=== PATIENT | female | born 1935 | race Caucasian/White ===

== ENCOUNTER 2016-09-28 07:28 | Outpatient (CLI) | payer OTHER ==
[2013-12-15 10:46] VITALS: BP 130/68
[2016-09-28 08:20] LABS: eGFR (African) > 60; eGFR (Non-African) > 60
== END 2016-09-28 07:30 ==
LOC: LAB 07:28
PROVIDERS: ATTEND Internal Medicine Endocrinology, Diabetes & Metabolism
DX: E89.0 Postprocedural hypothyroidism (principal); I10 Essential (primary) hypertension; E10.9 Type 1 diabetes mellitus without complications
CPT/HCPCS: 36415; 80053; 80061; 82043; 83036; 84439; 84443

== ENCOUNTER 2017-01-30 07:05 | Outpatient (CLI) | payer OTHER ==
[2013-12-15 10:46] VITALS: BP 130/68
[2017-01-30 08:14] LABS: eGFR (African) > 60; eGFR (Non-African) > 60
== END 2017-01-30 08:53 ==
LOC: LAB 07:05
PROVIDERS: ATTEND Internal Medicine Endocrinology, Diabetes & Metabolism
DX: E89.0 Postprocedural hypothyroidism (principal); I10 Essential (primary) hypertension; E10.9 Type 1 diabetes mellitus without complications
CPT/HCPCS: 36415; 80053; 80061; 83036; 84439; 84443

== ENCOUNTER 2017-05-02 14:56 | Outpatient (CLI) | payer OTHER ==
[2013-12-15 10:46] VITALS: BP 130/68
== END 2017-05-02 14:57 ==
LOC: POD 14:56
PROVIDERS: ATTEND Podiatrist
DX: B35.1 Tinea unguium (principal); M79.674 Pain in right toe(s); M79.675 Pain in left toe(s)
CPT/HCPCS: G0463

== ENCOUNTER 2017-07-26 07:16 | Outpatient (CLI) | payer OTHER ==
[2013-12-15 10:46] VITALS: BP 130/68
[2017-07-26 08:10] LABS: eGFR (African) > 60; eGFR (Non-African) > 60
== END 2017-07-26 09:03 ==
LOC: LAB 07:16
PROVIDERS: ATTEND Internal Medicine Endocrinology, Diabetes & Metabolism
DX: E10.9 Type 1 diabetes mellitus without complications (principal); E89.0 Postprocedural hypothyroidism
CPT/HCPCS: 36415; 80053; 80061; 83036; 84439; 84443

== ENCOUNTER 2017-08-10 15:49 | Emergency (ER) | payer OTHER ==
[~2017-08-10 15:49] MED LIST: KETAMINE HCL 200 MG/20 ML VIAL IVP ONE; SUCCINYLCHOLINE CHLORIDE 20 MG/ML 10ML VIAL IVP ONE
[2017-08-10] MEDS ORDERED: INSULIN REGULAR, HUMAN 100 UNIT/ML 3ML VIAL IV ONE (16:04)
[2017-08-10] MEDS ORDERED: MIDAZOLAM HCL 5 MG/5 ML VIAL IVP ONE ×2 (16:05→16:08)
[2017-08-10 16:17] LABS: MEAN CORPUSCULAR HEMOGLOBIN 31.2 pg (28.0-34.0); MEAN CORPUSCULAR VOLUME 117.9 fl (80.0-100.0)
--- NOTE | 2017-08-10 16:19 | ED Physician Documentation ---
General Adult - HISTORIAN Historian: paramedics - [facility] Chief Complaint: General Adult (unresponsive) Additional Information: Patient was found in her apartment by friends unresponsive with shallow respiration. EMT was called. On their arrival SAO2 was 58, respiratory assistance was start with bag/ mask. SAO2 improved to the mid 80s. Paramedics attempted incubation but were unsuccessful. Glucose stick was high. Patient was transferred to ED. Mental status remained unchanged during transport. Timing: still present Context: unknown Further Comments: yes (After medical records obtained from clinic patient noted to be on insulin. It is not known if she has been taking it or not. No recent illnes noted by family.) Last known Well Code/Unknown Code: Unknown - ROS CONST: no problems - PAST HX Past History: hypertension, other (hypothyroidism) Other History: diabetes Type 2 Surgeries/Procedures: none Immunizations: other (unknown) Allergies/Adverse Reactions: Allergies Allergy/AdvReac Type Severity Reaction Status Date / Time No Known Drug Allergies Allergy Verified 08/10/17 18:42 Home Medications: Ambulatory Orders Medication Instructions Recorded Levothyroxine Sodium 30 Days 01/23/13 Pravastatin Sodium 30 Days 01/23/13 - SOCIAL HX Smoking History: non-smoker Alcohol Use: none Drug Use: none - FAMILY HX Family History: No - VITAL SIGNS Vital Signs: Vital Signs Temp Pulse Resp BP Pulse Ox 130/68 12/15/13 10:45 - REVIEWED ASSESSMENTS Nursing Assessment Reviewed: Yes Vitals Reviewed: Yes Procedures Intubation Method: nasotracheal Tube Size (cm): 7.0 Medications: Pancuronium, Succinylcholine Breath Sounds after Intubation: equal Intubation Complications: no complications Post Intubation Xray: Yes (tube above edelmira) Critical Care Note - Critical Care Note Total Time (mins): 40 Comments: I was at patient bedside performing or managing care. ED Results Lab/Radiology - Orders Orders: ED Orders Category Date Time Status Continuous EKG monitoring Q30M Care 08/10/17 16:00 Active Continuous Pulse Oximetry Q30M Care 08/10/17 16:[address] IV Lock 1T Care 08/10/17 16:00 Active CHEST 1 VIEW [RAD] Stat Exams 08/10/17 16:00 Ordered CBC/PLATELET/DIFF Routine Lab 08/10/17 16:00 Ordered CMP Routine Lab 08/10/17 16:00 Ordered TROPONIN I (cTnI) Stat Lab 08/10/17 16:00 Ordered Insulin Regular, Human [Humulin R] Med 08/10/17 16:04 Discontinued 10 unit IV NOW ONE Oxygen Daily Oxygen 08/10/17 16:00 Ordered EKG WITH COMPARISON Stat Ther 08/10/17 16:00 Ordered General Adult Physical Exam - PHYSICAL EXAM GENERAL APPEARANCE: poor respiratory effort EENT: eye inspection normal, pharynx normal, no signs of dehydration, other ( some emisis in pharynx) NECK: normal inspection, supple RESPIRATORY: rales (few scttered), other (bag/mask assisstance). No: wheezes, rhonchi CVS: reg rate & rhythm, heart sounds normal, equal pulses, no gallop ABDOMEN: soft, no organomegaly, normal bowel sounds, no abdominal bruit SKIN: warm/dry, normal color EXTREMITIES: edema NEURO: CN's nml as tested, motor nml (moving all extremities). No: oriented X3 Discharge Clincal Impression: DKA (diabetic ketoacidoses) Qualifiers: Diabetes mellitus type: type 2 Diabetes mellitus complication detail: with coma Qualified Code(s): E11.11 - Type 2 diabetes mellitus with ketoacidosis with coma Referrals: Suni Brown MD [Primary Care Provider] - 2 Days Condition: Critical Decision to Admit: [id number] Date of Decison to Admit: 08/10/17 Decision Time: 16:00
--- NOTE | 2017-08-10 16:29 | Diagnostic Imaging Report ---
[facility] [address] [facility].[address] [id number] Report Submission Date: Aug 10, 2017 4:27:48 PM [employer] Patient Study Name: MELLY RAMON Date: Aug 10, 2017 4:04:46 PM [employer] Modality Type: CR Gender: F Description: CHEST : 37 Institution: [facility] Physician: THAD KELLOGG Examination: Portable chest History: Chest discomfort Comparison exam: None provided Findings: Single view of the chest demonstrates a prominent cardiac and mediastinal silhouette. Vascular calcifications involving the aortic arch. Lung juárez and straight patchy interstitial prominence. No blunting of the costophrenic margins. Tip of an endotracheal tube identified at the level of 2nd vertebral body- 7.9 cm above the maria de jesus. Osseous structures are appropriate for age. Impression: Prominent cardiac silhouette with increased central vascular prominence - infiltrate versus increased volume status. Tip of an endotracheal tube identified at the level of 2nd vertebral body - 7.9 cm above the maria de jesus. Electronically signed on Aug 10, 2017 4:27:48 PM [employer] by: Ricardo GREENE
[2017-08-10 16:36] LABS: eGFR (African) 24; eGFR (Non-African) 20
[2017-08-10] MEDS ORDERED: 0.9 % SODIUM CHLORIDE 1,000 ML IV ONE ×2 (16:45→19:13)
[2017-08-10 17:15] LABS: MONOCYTES % 4 % (0-11); SEGMENTED NEUTROPHILS % 91 % (39-79)
[2017-08-10 19:19] VITALS: BP 153/72
[2017-08-11 07:29] LABS: APPEARANCE,URINE CLEAR (CLEAR); COLOR,URINE YELLOW (YELLOW); OCCULT BLOOD,URINE TRACE-INTACT (NEGATIVE); PH URINE 5.5 (5.0 - 8.0); UROBILINOGEN URINE 0.2 Eu (0.2-1.0)
== END 2017-08-10 16:43 ==
LOC: ED 15:49
DX: E11.11 Type 2 diabetes mellitus with ketoacidosis with coma (principal)
CPT/HCPCS: 51702; 71010; 80053; 83605; 84484; 85025; J0330; J1815; J2250; J7030; 31500; 81002; 96365; 96366; 99281; 99284; 99285; 99291; S1016